=== PATIENT | male | born 1955 | race Caucasian/White ===

== ENCOUNTER 2017-06-29 12:54 | Emergency (ER) | payer OTHER, SELFPAY ==
[2017-06-29] VITALS (7 sets, daily range): BP systolic 134–164; BP diastolic 70–95; PULSE 63–87; RESP 14–15; TEMP 36.6; O2SAT 95–99; BMI 30.1
--- NOTE | 2017-06-29 13:00 | RAD_ITS ---
STUDY: X-RAY CHEST REASON FOR EXAM: Male, 61 years old. Chest discomfort. Irregular heartbeat. TECHNIQUE: Single AP portable view of the chest. COMPARISON: None. FINDINGS: EKG electrodes are seen. The lungs are clear and expanded. Scattered calcified granulomas. There is no demonstrated pleural abnormality. Normal size heart. Normal mediastinum and jennifer. Normal visualized pulmonary arteries. Normal visualized aortic arch and descending thoracic aorta. Normal visualized thoracic spine. Normal visualized ribs, clavicles, and shoulders. There is no demonstrated abnormality of the visualized soft tissue structures of the upper abdomen. RAD/Chest 1 View (Portable) IMPRESSION: Normal x-ray examination of the chest. Electronically Signed: Edson Plascencia MD at 13:35 EST Tel [phone], Service support ,
--- NOTE | 2017-06-29 13:00 | EKG12_ITS ---
Test Reason : CP Blood Pressure : / mmHG Vent. Rate : 082 BPM Atrial Rate : 082 BPM P-R Int : 188 ms QRS Dur : 124 ms QT Int : 392 ms P-R-T Axes : 044 006 023 degrees QTc Int : 457 ms Normal sinus rhythm Normal ECG Confirmed by EAMON SALAZAR, MONTY ([id number]), supervising editor trailer KIMBERLY VELAZQUEZ ([id number]) on 06/30/2017 2:24:40 PM Referred By: CANDY/REILLY Confirmed By:MONTY KNUTSON MD
[2017-06-29] MEDS: Aspirin 81 MG TAB.CHEW 324 MG PO (13:06)
[2017-06-29 13:10] LABS: Absolute Lymphocyte Count 2.19 X10^3/ul (0.83-4.51); Basophil# 0.04 X10^3/uL; Basophil% 0.6 % (0-1); Eosinophil# 0.03 X10^3/uL; Eosinophils% 0.4 % (0-5); Hematocrit 42.6 % (40-54); Hemoglobin 14.6 g/dl (13.0-16.5); Lymphocyte # 2.19 X10^3/ul (4.0); Lymphocyte % 32.7 % (19-41); Mean Corp Hgb Conc 34.3 g/gl (32-36); Mean Corpuscular Hgb 30.9 pg (27.0-32.0); Mean Corpuscular Volume 90.1 fL (80-94); Mean Platelet Vol. 9.2 fl (6.2-12.0); Monocyte# 0.45 X10^3/uL; Monocyte% 6.7 % (0-10); Neutrophil # 3.98 X10^3/uL (2.7-7.7); Neutrophil % 59.5 % (47-70); Platelet Count 233 K/mm3 (150-450); RBC Distribution Width CV 12.9 % (11.6-14.6); RBC Distribution Width SD 42.1 fl (35.1-43.9); Red Blood Count 4.73 M/mm3 (4.6-6.2); White Blood Count 6.7 K/mm3 (4.4-11.0)
[2017-06-29 13:11] LABS: POSITIVE COUNT NO; POSITIVE DIFFERENTIAL NO; POSITIVE MORPHOLOGY NO
[2017-06-29 13:23] LABS: Anion Gap 6 (5-15); BUN 14 mg/dL (7-18); BUN/Creat Ratio 12.5 RATIO (10-20); Calcium,Total 8.8 mg/dL (8.5-10.1); Chloride 107 mmol/L (98-107); Creatinine, Serum 1.12 mg/dL (0.70-1.30); EST Glomerular Filtration Rate 71 mL/min (>60); Est Glom Filt Rate - Afr Amer 86 mL/min (>60); Glucose 107 mg/dL (74-106); Potassium 4.1 mmol/L (3.5-5.1); Sodium Level 139 mmol/L (136-145)
--- NOTE | 2017-06-29 16:46 | ED.VISSUMM ---
- ER Visit Summary Date of Service: 06/29/17 Chief Complaint: Chest pain History of Present Illness: The patient is a 61 M presents with dullness left-sided chest since 6:15 AM, more than 6 hours prior to arrival. Symptoms wax and waning. States slight numbness to the volar forearm. Pain currently 1 out of 10. No worsening or relieving factors. No nausea or vomiting. No diaphoresis. No dyspnea. No recent illness. No PE risk factors. History of hypertension that is being monitored with no medications. Dad had an IL in his 50s. Stress test in 2000. Physical Examination: General: Alert and oriented ?3, no acute distress HEENT: Normocephalic, atraumatic. Moist mucosa membranes Neck: supple, nontender. Cardiovascular: Regular rate and rhythm, no murmurs Respiratory: Normal breath sounds, symmetric, no distress Abdomen: Soft, nontender, nondistended Extremities: Nontender, no edema, pulses intact ?4 Neuro: no focal neurological deficits. Test Results: EKG: Sinus rate of 82, no ST changes P-wave inversion in leads III. Chest x-ray negative. Cardiac workup negative, troponin less than 0.02?2. Emergency Department Course and Treatment: Patient in no acute distress. Given aspirin. Cardiac workup is negative. Heart scores a 2. JOSEPH score 0. Discussed with patient heart pathway guidelines. He did agree to stay with a 3 hour troponin draw which is obtained and negative. Remained symptom-free. Discussed with patient follow-up with his PCP or outpatient reevaluation and stress test. Discuss any worsening symptoms to return for reevaluation. All questions were answered. Treatment Plan: [] Disposition: Discharge Impression: 1. Acute chest pain This note was generated with [employer] dictation software. It may contain incorrect words, spelling, and punctuation that were not noted in review of the chart prior to signing ED Disposition - Plan for ED Patient: Disposition: Home or Assisted Living Chief Complaint: Chest Pain Diagnosis: Acute chest pain Instructions: ED Chest Pain [facility] Referrals: Eric Landaverde MD [Primary Care Provider] - 3-5 Days
--- NOTE | 2017-06-29 16:49 | ED.DCSUM_ITS ---
- ER Visit Summary Date of Service: 06/29/17 Chief Complaint: Chest pain History of Present Illness: The patient is a 61 M presents with dullness left- sided chest since 6:15 AM, more than 6 hours prior to arrival. Symptoms wax and waning. States slight numbness to the volar forearm. Pain currently 1 out of 10. No worsening or relieving factors. No nausea or vomiting. No diaphoresis. No dyspnea. No recent illness. No PE risk factors. History of hypertension that is being monitored with no medications. Dad had an RI in his 50s. Stress test in 2000. Physical Examination: General: Alert and oriented ?3, no acute distress HEENT: Normocephalic, atraumatic. Moist mucosa membranes Neck: supple, nontender. Cardiovascular: Regular rate and rhythm, no murmurs Respiratory: Normal breath sounds, symmetric, no distress Abdomen: Soft, nontender, nondistended Extremities: Nontender, no edema, pulses intact ?4 Neuro: no focal neurological deficits. Test Results: EKG: Sinus rate of 82, no ST changes P-wave inversion in leads III. Chest x-ray negative. Cardiac workup negative, troponin less than 0.02?2. Emergency Department Course and Treatment: Patient in no acute distress. Given aspirin. Cardiac workup is negative. Heart scores a 2. JOSEPH score 0. Discussed with patient heart pathway guidelines. He did agree to stay with a 3 hour troponin draw which is obtained and negative. Remained symptom-free. Discussed with patient follow-up with his PCP or outpatient reevaluation and stress test. Discuss any worsening symptoms to return for reevaluation. All questions were answered. Treatment Plan: [] Disposition: Discharge Impression: 1. Acute chest pain This note was generated with [employer] dictation software. It may contain incorrect words, spelling, and punctuation that were not noted in review of the chart prior to signing ED Disposition - Plan for ED Patient: Disposition: Home or Assisted Living Chief Complaint: Chest Pain Diagnosis: Acute chest pain Instructions: ED Chest Pain [facility] Referrals: Eric Landaverde MD [Primary Care Provider] - 3-5 Days
== END 2017-06-29 16:54 | disposition home or self-care (01) ==
PROVIDERS: Emergency Provider Emergency Medicine; Family Provider Family Medicine; PCP Family Medicine
DX: R07.89 Other chest pain (principal)
CPT/HCPCS: 71045; 80048; 84484; 85025; 93005; 99284; A4216

== ENCOUNTER → 2017-08-17 11:29 | Outpatient (CLI) | payer OTHER, SELFPAY ==
--- NOTE | 2017-08-17 14:45 | STRESSREP ---
Stress Test Report Exercise stress test. 61-year-old man with a history of chest pain. Stress protocol: Resting EKG demonstrates normal sinus rhythm with a rate of 77 bpm and a blood pressure 132/72 mmHg. The patient exercised according to the regular Jaden protocol for total duration of 8 minutes completing 2 minutes into stage III of the Jaden protocol. The maximum heart rate attained was 164 bpm which was 102% of maximum predicted heart rate the maximum workload attained was 10.1 metabolic equivalents. Patient maintained sinus rhythm throughout the recording. The resting blood pressure is 132/72 with a peak blood pressure of 200/70 mmHg and a rate pressure product of 28,400. The patient did develop some shortness of breath. At rest there were no ST or T-wave changes noted suggest ischemia. At peak exercise they appeared to be upsloping ST changes noted in leads II, III and aVF but is significantly elevated TP segment. The patient remained asymptomatic the above was concerning for ischemia. Conclusion: Exercise stress test with EKG changes concerning for possible ischemia. No angina noted. Good functional capacity.
--- NOTE | 2017-08-17 16:40 | RAD_ITS ---
STUDY: X-RAY CHEST REASON FOR EXAM: Male, 61 years old. Abnormal result of cardiovascular study TECHNIQUE: Frontal and lateral views of the chest. COMPARISON: None. FINDINGS: The lungs are clear and expanded. There is no demonstrated pleural abnormality. Normal size heart. Normal mediastinum and jennifer. Normal visualized pulmonary arteries. Normal visualized aortic arch and descending thoracic aorta. Normal visualized thoracic spine. Normal visualized ribs, clavicles, and shoulders. There is no demonstrated abnormality of the visualized soft tissue structures of the upper abdomen. RAD/Chest PA and Lateral IMPRESSION: Normal x-ray examination of the chest. Electronically Signed: Albert Julio MD at 17:34 EDT , Service support ,
== END ==
PROVIDERS: Family Provider Family Medicine; PCP Family Medicine; Visit Provider Family Medicine
DX: R07.9 Chest pain, unspecified (principal); R94.39 Abnormal result of other cardiovascular function study
CPT/HCPCS: 71046; 93017

== ENCOUNTER → 2017-08-18 06:37 | Day surgery (SDC) | payer OTHER, SELFPAY ==
[2017-08-17 17:19] LABS: Absolute Neutrophil Count 6.9 X10^3/uL (2.0-7.7); Basophil# 0.03 X10^3/uL; Basophil% 0.3 % (0-1); Eosinophil# 0.07 X10^3/uL; Eosinophils% 0.7 % (0-5); Hematocrit 41.9 % (40-54); Hemoglobin 14.1 g/dl (13.0-16.5); Lymphocyte % 21.7 % (19-41); Mean Corp Hgb Conc 33.7 g/gl (32-36); Mean Corpuscular Hgb 30.9 pg (27.0-32.0); Mean Corpuscular Volume 91.9 fL (80-94); Mean Platelet Vol. 9.4 fl (6.2-12.0); Monocyte% 8.9 % (0-10); Neutrophil # 6.94 X10^3/uL (2.7-7.7); Neutrophil % 68.3 % (47-70); Platelet Count 264 K/mm3 (150-450); RBC Distribution Width CV 12.8 % (11.6-14.6); RBC Distribution Width SD 42.5 fl (35.1-43.9); Red Blood Count 4.56 M/mm3 (4.6-6.2); White Blood Count 10.2 K/mm3 (4.4-11.0)
[2017-08-17 17:22] LABS: POSITIVE COUNT NO; POSITIVE DIFFERENTIAL NO; POSITIVE MORPHOLOGY NO
[2017-08-17 17:29] LABS: Prothrombin Time (Protime)PT. 13.4 SECONDS (11.7-14.9)
[2017-08-17 17:40] LABS: Anion Gap 6 (5-15); BUN 19 mg/dL (7-18); BUN/Creat Ratio 16.7 RATIO (10-20); Chloride 105 mmol/L (98-107); Creatinine, Serum 1.14 mg/dL (0.70-1.30); EST Glomerular Filtration Rate 69 mL/min (>60); Est Glom Filt Rate - Afr Amer 84 mL/min (>60); Glucose 94 mg/dL (74-106); Potassium 4.4 mmol/L (3.5-5.1); Sodium Level 137 mmol/L (136-145)
[2017-08-18 06:41] VITALS: BMI 29.2
--- NOTE | 2017-08-18 08:33 | CL.D_ITS ---
Patient Name: MUKUND ULRICH Study Date: 08/18/2017 Performing: Colin Hardwick MD Ht: 71 inches 180.34 cm : 1955 Wt: 211 lbs 95.708 kg Age: 61 Gender: male BSA: 2.16 PROCEDURE(S) PERFORMED IF51-[id number]/COR/LV CLINICAL PROFILE AND INDICATIONS Indications: Suspected CAD Heart Failure: None Stress/Imaging Standard Exercise Stress Test: Yes Result: Indeterminant Angina Classification Anginal Classification w/in 2 Weeks: No symptoms CAD Presentations: Symptom unlikely to be ischemic. CONCLUSIONS Normal coronary arteries Normal LV size, wall motion,and systolic function RECOMMENDATIONS Medical therapy DESCRIPTION OF PROCEDURE The patient arrived to the procedure lab. The risks and benefits of the procedure as well as a full d escription of our services here and current unavailability of surgical backup were fully explained to the patient and/or their significant other prior to the catheterization. The Timeout was completed, verifying the correct patient and procedure. The patient's procedural site was prepped and draped in the usual fashion. . Using a modified Seldinger technique, arterial access was obtained via the right radial artery, a 5Fr sheath was inserted. Left Coronary Artery selective angiography was performed in multiple views using a 5 Fr. 4.0 [place] catheter. Right Coronary Artery selective angiography was t hen performed in multiple views using a 5 Fr. 4.0 [place] catheter. Left Ventriculography was performed in MANCILLA projection using a 5 Fr. Pigtail catheter. LV to AO pullback pressures were then recorded.The arterial sheath was pulled and a TR Band was applied for hemostasis CORONARY ANGIOGRAPHY DOMINANCE: Right Dominant LEFT HEART ASSESSMENT Left Ventricular Ejection Fraction: by LV Gram 60 % Normal LV wall motion Normal Left Ventricular systolic function Normal Left Ventricular systolic function LEFT MAIN: Angiographically normal LEFT ANTERIOR DECENDING ARTERY: Angiographically normal CIRCUMFLEX ARTERY: Angiographically normal RIGHT CORONARY ARTERY: Angiographically normal COMPLICATIONS No Complications PROCEDURE MEDICATIONS Fentanyl 50 mcg IV Versed 1 mg IV Versed 1 mg IV Oxygen: 2 L/min via nasal cannula Heparin diluted in 23cc Heparinized saline. Patient given 10cc IA of this solution. 08/18/2017 08:09: 41 Verapamil 2.5mg, Ntg 100mcgs, 2000 units of Heparin diluted in 23cc Heparinized saline. Patient give n 10cc IA of this solution. 08/18/2017 08:09:41 SUMMARY OF HEMODYNAMIC DATA Time AIR REST ECG 07:03:54 AO 99/67 (82) SA 08:13:11 LV 110/5, 10 08:19:42 LV 114/4, 10 08:19:49 LV 111/5, 14 08:21:22 LVp 107/9, 12 08:21:26 AOp 114/70 (89) 08:21:31 Signed By Colin Hardwick MD On 08/18/2017 08:32:22 Colin Hardwick MD
== END ==
PROVIDERS: Family Provider Family Medicine; PCP Family Medicine; Visit Provider Internal Medicine Cardiovascular Disease
DX: R07.9 Chest pain, unspecified (principal); R94.39 Abnormal result of other cardiovascular function study; I10 Essential (primary) hypertension; F10.20 Alcohol dependence, uncomplicated; Z87.891 Personal history of nicotine dependence; Z79.82 Long term (current) use of aspirin; Z79.899 Other long term (current) drug therapy
CPT/HCPCS: 36415; 80048; 85025; 85610; 93458; 99152; 99153; J7030; Q9967; C1769; C1894

== ENCOUNTER → 2018-03-22 16:11 | Outpatient (CLI) | payer OTHER, SELFPAY ==
[2017-08-18 06:41] VITALS: BMI 29.2
--- NOTE | 2018-03-22 16:13 | RAD_ITS ---
STUDY: X-RAY - ABDOMEN/PELVIS REASON FOR EXAM: Male, 62 years old. Abdominal pain below belly button. TECHNIQUE: AP supine and upright views of the abdomen and pelvis. 4 images COMPARISON: None. FINDINGS: Normal visualized lung bases. There is an unremarkable bowel gas pattern. There is no demonstrated free abdominal air. The visualized liver, spleen and kidneys are grossly normal in size and morphology. Normal soft tissue structures. Normal visualized osseous structures. RAD/Abd Inc Decub and/or Erect IMPRESSION: Normal x-ray examination of the abdomen and pelvis. Electronically Signed: Sofi Lim MD at 2:55 EST , Service support ,
--- OUTSIDE RECORDS SUMMARY | 2018-05-04 14:44 | XMS RPT_ITS ---
:1955 Author Organization OHIP Support Name Relationship Address Phone KRIS ULRICH Unavailable [address] + [place] [address] [employer] [employer] Unavailable [address] + [place] [address] SERG, KRIS Unavailable [address] + [place] [address] [employer] Unavailable [address] + [place] [address] SERG, KRIS Unavailable [address] + [place] [address] [employer] Unavailable [address] + [place] [address] SERG, KRIS Unavailable [address] + [place] [address] [employer] [employer] Unavailable [address] + [place] [address] SERG, KRIS Unavailable [address] + [place] [address] [employer] [employer] Unavailable [address] + [place] [address] SERG, KRIS Unavailable [address] + [place] [address] [employer] [employer] Unavailable [address] + [place] [address] SERG, KRIS Unavailable [address] + [place] [address] [employer] [employer] Unavailable [address] + [place] [address] SERG, KRIS Unavailable [address] + [place] [address] [employer] [employer] Unavailable [address] + [place] [address] KRIS ULRICH Unavailable [address] + [place] [address] [employer] Unavailable [address] + [place] [address] Care Team Providers Name Role Phone Jovan Pope Attending Unavailable Ranney, Christopher Primary Care Unavailable Ranney, Christopher Attending Unavailable Ranney, Christopher Primary Care Unavailable DeFinis, Harumi Attending Unavailable DeFinis, Harumi Attending Unavailable DeFinis, Harumi Attending Unavailable Mulu, [place] Attending Unavailable Ranney, Christopher Referring Unavailable Ranney, Christopher Primary Care Unavailable Mulu, Colin Attending Unavailable Mulu, [place] Referring Unavailable Ranney, Christopher Primary Care Unavailable Mulu, Colin Attending Unavailable Ranney, Christopher Attending Unavailable Ranney, Christopher Referring Unavailable Ranney, Christopher Primary Care Unavailable PROBLEMS PROBLEMS DATE TYPE CONDITION / CODE ATTENDING STATUS SOURCE 03/22/2018 Unknown R10.30 - [place], Active [place] abdominal pain, [facility] unspecified / Hospital R10.30(ICD-10) Repository 09/08/2017 Unknown R94.39 - Abnormal Mulu, [place] Active [facility] result of other [facility] cardiovascular Hospital function study / Repository R94.39(ICD-10) 09/08/2017 Unknown R07.9 - Chest pain, Mulu, [place] Active [facility] unspecified / Community R07.9(ICD-10) Hospital Repository PROCEDURES PROCEDURES No Procedure Records FoundRESULTS RESULTS ABD INC DECUB Observed: 03/22/2018 Status: F Source: [place] AND/OR ERECT 4:14 PM [facility] REPOSITORY [facility] Imaging Services [address] [place] [address] Abd Inc Decub and/or Erect MR#: [id number] Acct: [id number] Name: MUKUND ULRICH Rep #: [id number] : 1955 M 62 From: Sofi Lim MD PCP: Robles Landaverde MD Status: REG CLI Study: Abd Inc Decub and/or Erect Date of Exam: 03/22/18 Exam# [id number] Ordering Dr: Eric Landaverde MD STUDY: X-RAY - ABDOMEN/PELVIS REASON FOR EXAM: Male, 62 years old. Abdominal pain below belly button. TECHNIQUE: AP supine and upright views of the abdomen and pelvis. 4 images COMPARISON: None. FINDINGS: Normal visualized lung bases. There is an unremarkable bowel gas pattern. There is no demonstrated free abdominal air. The visualized liver, spleen and kidneys are grossly normal in size and morphology. Normal soft tissue structures. Normal visualized osseous structures. RAD/Abd Inc Decub and/or Erect IMPRESSION: Normal x-ray examination of the abdomen and pelvis. Electronically Signed: Sofi Lim MD at 2:55 EST , Service support , CC: Robles Landaverde MD Exchange Underwriting Consultant: Signed CARDIOLOGY VISIT Observed: 08/18/2017 Status: F Source: [place] REPORT 9:25 AM [facility] REPOSITORY [facility] [address] [place] [address]. [address] [place] [address] OFFICE VISIT Date of Service: 08/17/17 MR#: [id number] Acct: [id number] Name: MUKUND ULRICH Rep #: [id number] : 1955 Provider: Colin Knutson MD Age/Sex: 61/M Location: [facility] Status: Signed HPI HPI Chief Complaint: Initial evaluation. Details: MUKUND ULRICH, is a 61 M who presents to the office today for initial evaluation for chest pain. He is a pleasant gentleman with a history of hypertension who says that a few weeks ago he started experiencing left-sided chest discomfort he went to the emergency room after he noted that his blood pressure was noted to be elevated. He was put on lisinopril and subsequently discharged. He has also noticed some chest discomfort when he has been walking his to 80 pound dogs. He has had no dizziness or diaphoresis no near syncope or syncope he has been compliant with his medications. He was scheduled for a stress test and underwent an exercise stress test without nuclear imaging today it has demonstrated abnormal changes in his inferior ST and T piece segments and therefore he was advised to see us for further evaluation. He denies any neck arm or jaw discomfort in his physical exam today demonstrates clear lung hudson regular rate and rhythm and no pedal edema. Intake Vital Signs08/17/17 Height 5 ft 11 in 08/17/17 Weight: 210 lb 08/17/17 Body Mass Index (BMI) 29.2 08/17/17 Blood Pressure 120/82 08/17/17 Blood Pressure Location Lt brachial Intake Visit Reasons: Abnormal stress Call Center Rn Required: No Accompanied by: None Is patient in pain?: Yes (lower abdominal discomfort radiates to lower back, cramp) Pain scale (1-10): 2 Allergies No Known Allergies Allergy (Verified 08/17/17 15:44) Medications aspirin 81 mg tablet,delayed release 81 mg PO QDAY #7 tab 08/17/17 [Rx Confirmed 08/18/17] clopidogrel 75 mg tablet 75 mg PO QDAY #7 tab 08/17/17 [Rx Confirmed 08/18/17] lisinopril 20 mg tablet 20 mg PO QDAY 08/17/17 [History Confirmed 08/18/17] PFSH Medical History Tinnitus of both ears (Chronic) Alcohol dependence, continuous drinking behavior (Chronic) Abnormal stress test (Acute) Chest pain (Acute) HTN (hypertension) (Acute) Surgical History History of colonoscopy with polypectomy (Chronic 01/08/17) Family History Father Cancer Lung cancer FH: CABG (coronary artery bypass surgery) Myocardial infarction Mother Colon cancer Grandfather Colon cancer Social History Smoking Status: Former smoker how long ago did patient quit smokin alcohol intake: current alcohol intake frequency: a few times a week Alcohol type: beer substance use type: does not use caffeine: Yes Type: coffee what type of physical activity do you participate in: none seatbelt use: always do you feel safe at home: Yes ROS Const Const: Positive for fatigue and weakness; negative for body ache, fever(s), chills, night sweats, daytime sleepiness, difficulty sleeping, weight gain, weight loss, increased appetite, poor appetite, anorexia, other, frequent falls, headache(s) or excessive sweating Eyes Eyes: Negative for blind spots, loss of peripheral vision, transient loss of vision, change in vision, floaters, tunnel vision, other, blurry vision or double vision ENT ENT: Positive for tinnitus; negative for hearing loss, Nosebleed/epistaxis, post nasal drip, bleeding gums, hoarseness, neck pain, dry mouth, other, balance problems, dizziness, headache(s), tongue swelling or lip swelling Cardio Chest Pain: No Palpitations: No Edema: None Muscle aches with walking: None Resp Respiratory: Negative for SOB with activity, SOB at rest, SOB orthopnea\SOB lying down, Cough, Coughing up blood/hemoptysis, chest congestion, pain on inspiration, snoring, stridor, wheezing, crackles, paroxysmal nocturnal dyspnea or other GI GI: Negative nausea, vomiting, heartburn, constipation, belching, bloating, cramping, vomiting blood/hematemesis, bright, red blood in stools, black,tarry stools, loose stools, Difficulty Swallowing or other : Negative for hematuria, frequent nighttime urination/ nocturia, erectile dysfunction or abnormal vaginal bleeding Musc Musc: Negative for muscle aches/ myalgia, muscle weakness, joint pain or balance problems Skin Skin: Negative redness, non-healing lesions, unusual bruising, skin ulcer, wounds, jaundice, other or rash Neuro Neuro: Positive for weakness; negative for dizziness, lightheadedness, near syncope, syncope, orthostatic symptoms, frequent falls, headache(s), confusion, memory loss, restless legs, blurry vision, double vision, vertigo, seizures, lack of coordination or other Vlad Hematologic/Lymphatic: Negative for easy bleeding, easy bruising, enlarged lymph nodes or other Endo Endo: Positive for fatigue and flushing (facial); negative for cold intolerance, heat intolerance, excessive sweating, increased thirst/drinking, increased hunger, hair loss, hair growth or other Psych Psych: Negative for anxiety, depression, thoughts of harming anyone, thoughts of harming yourself, visual hallucinations, panic attacks or audible hallucinations Allergy Allergy/Immunology: Negative for throat swelling, Negative for tongue swelling, Negative for hives, Negative for rash, Negative for lip swelling Cardiology Exam Const Appearance: cooperative, healthy appearing, well developed, well groomed and no acute distress Nutritional Appearance: well nourished and average body habitus Orientation: alert, awake and oriented x3 Head Head: normal to inspection, normocephalic and atraumatic Ears: hearing grossly normal bilaterally and external ears normal Nose: external nose normal, nasal mucous membranes and turbinates normal, nares normal, septum normal, no nasal discharge Face and Sinus: face symmetric Mouth: oral mucosae normal, tongue normal, oropharynx normal and moist mucous membranes Teeth and gingiva: dentition normal Throat: posterior oropharynx normal, tonsils normal and uvula midline Eyes General: appearance normal, both eyes and all related structures Eyelids: eyelids normal Conjunctivae: conjunctivae normal Pupils: PERRL, normal by confrontation and accommodation normal EOM: EOM intact bilaterally Neck Neck: normal visual inspection, trachea midline and no JVD JVD: +5 Carotids: normal carotid upstroke and bounding pulses Chest Chest inspection: normal inspection of the chest, symmetric chest movement and normal respiratory effort Auscultation: Bilateral: Clear to Auscultation Cardio Palpation: normal PMI Rate: regular rate Rhythm: regular rhythm Heart sounds: S1 normal, S2 normal and normal, physiologic split S2; negative rub, gallop or murmur GI GI: normal to inspection, soft, no hepatosplenomegaly and bowel sounds present Neuro General: alert, awake, oriented x3, no focal sensory deficit, gait normal and moves all extremities Skin Skin: no rashes or lesions noted Extremities Pulses: Normal: Right Femoral Pulse, Left Femoral Pulse, Right Dorsalis Pedis Pulse, Left Dorsalis Pedis Pulse, Right Posterior Tibial Pulse, Left Posterior Tibial Pulse, Right Radial Pulse, Left Radial Pulse Lower Extremity Edema: None: Bilateral Musculoskel Musculoskeletal: No joint tenderness Psych Psychological: normal affect Assessment AND Plan 1. Abnormal stress test R94.39 Plan He does have a history of chest pain with an abnormal stress test with EKG changes which appeared to ST elevation. Due to the above it was felt that he should be seen and undergo preparation for a cardiac catheterization. The risks benefits and alternatives have been explained to him and he understands and agrees to proceed. Depending on the findings further recommendations will be made. Orders Orders: 2. Essential hypertension I10 Plan He does have a history of hypertension and has been placed on lisinopril. He will continue the same. His blood pressure appears to be well controlled at this time. Thank you for allowing me to participate in the care of your patient. 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) Coding Level of Care Code Off vis,new,level 4 Diagnoses Abnormal stress test R94.39 Essential hypertension I10 Hypertension type: essential hypertension Coding Level of Care Code Off vis,new,level 4 Diagnoses Abnormal stress test R94.39 Essential hypertension I10 Hypertension type: essential hypertension 08/18/17 0925 <Electronically signed by Colin Knutson MD> Date Colin Knutson MD Cosign Signature: Date (if applicable) CC: Robles Landaverde MD CHEST PA AND LATERAL Observed: 08/17/2017 Status: F Source: [place] 4:35 PM [facility] REPOSITORY [facility] Imaging Services [address] [place] [address] Chest PA and Lateral MR#: [id number] Acct: [id number] Name: MUKUND ULRICH Rep #: [id number] : 1955 M 61 From: Albert Julio MD PCP: Robles Landaverde MD Status: REG CLI Study: Chest PA and Lateral Date of Exam: 08/17/17 Exam# [id number] Ordering Dr: Colin Knutson MD STUDY: X-RAY CHEST REASON FOR EXAM: Male, 61 years old. Abnormal result of cardiovascular study TECHNIQUE: Frontal and lateral views of the chest. COMPARISON: None. FINDINGS: The lungs are clear and expanded. There is no demonstrated pleural abnormality. Normal size heart. Normal mediastinum and jennifer. Normal visualized pulmonary arteries. Normal visualized aortic arch and descending thoracic aorta. Normal visualized thoracic spine. Normal visualized ribs, clavicles, and shoulders. There is no demonstrated abnormality of the visualized soft tissue structures of the upper abdomen. RAD/Chest PA and Lateral IMPRESSION: Normal x-ray examination of the chest. Electronically Signed: Albert Julio MD at 17:34 EDT , Service support , CC: Robles Landaverde MD; Colin Knutson MD Exchange Underwriting Consultant: Signed CBC W/DIFF, AUTOMATED Collected: 08/17/2017 Status: F Source: [place] 4:29 PM [facility] REPOSITORY TYPE CODE TESTS RESULT OUT OF RANGE REFERENCE UNITS LAB L100.1000 4.4-11.0 K/mm3 Normal WBC 10.2 LAB L100.1200 4.6-6.2 M/mm3 Low RBC 4.56 LAB L100.1300 13.0-16.5 g/dl Normal HGB 14.1 LAB L100.1400 40-54 % Normal HCT 41.9 LAB L100.1500 80-94 fL Normal MCV 91.9 LAB L100.1600 27.0-32.0 pg Normal MCH 30.9 LAB L100.1700 32-36 g/gl Normal MCHC 33.7 LAB L100.1810 11.6-14.6 % Normal RDW CV 12.8 LAB L100.1820 35.1-43.9 fl Normal RDW SD 42.5 LAB L100.1900 150-450 K/mm3 Normal PLT 264 LAB L100.2000 6.2-12.0 fl Normal MPV 9.4 LAB L100.2100 47-70 % Normal NEUT% 68.3 LAB L100.2200 19-41 % Normal LY% 21.7 LAB L100.2300 0-10 % Normal MONO% 8.9 LAB L100.2400 0-5 % Normal EO% 0.7 LAB L100.2500 0-1 % Normal BASO% 0.3 LAB L100.2550 0.0-0.9 % Normal IM GRAN % 0.100 Result Comment: IG% - Immature Granulocytes (promyelocytes, myelocytes and metamyelocytes) > 1% indicates that a LEFT SHIFT is Present. LAB L100.2620 2.0-7.7 X10 3/uL Normal Absolute Neut 6.9 LAB L100.2720 0.83-4.51 X10 3/ul Normal Absolute Lymph 2.20 Performed By: #### L100.0100, L300.3900, L500.2500 #### [facility] [address] [place], [place], [address] PROTHROMBIN TIME W/INR Collected: 08/17/2017 Status: F Source: [place] 4:29 PM [facility] REPOSITORY TYPE CODE TESTS RESULT OUT OF RANGE REFERENCE UNITS LAB L300.4150 11.7-14.9 SECONDS Normal PROTIME 13.4 LAB L300.4200 Normal INR 1.0 Performed By: #### L100.0100, L300.3900, L500.2500 #### [facility] [address] [place], [place], [address] BASIC METABOLIC Collected: 08/17/2017 Status: F Source: [place] PROFILE (BMP) 4:29 PM [facility] REPOSITORY TYPE CODE TESTS RESULT OUT OF RANGE REFERENCE UNITS LAB L501.0100 74-106 mg/dL Normal GLU 94 Result Comment: Please note revised GLUCOSE reference range effective 2017. LAB L501.1000 7-18 mg/dL High BUN 19 LAB L501.1100 0.70-1.30 mg/dL Normal CREAT,SERUM 1.14 Result Comment: The validity of the calculated GFR AND GFRAA in patients over 70 years has not been determined. Clinical correlation is essential. LAB L501.1110 >60 mL/min Normal EST GFR 69 Result Comment: Non- GFR Calc LAB L501.1115 >60 mL/min Normal EST GFR - AA 84 Result Comment: GFR Calc LAB L501.1300 10-20 RATIO Normal BUN/CRE 16.7 LAB L501.2200 8.5-10.1 mg/dL CA Normal 9.0 LAB L501.5300 136-145 mmol/L NA Normal 137 LAB L501.5600 3.5-5.1 mmol/L K Normal 4.4 LAB L501.5900 98-107 mmol/L CL Normal 105 LAB L501.6100 21.0-32.0 mmol/L Normal CO2 26.0 LAB L501.6200 5-15 Normal GAP 6 Performed By: #### L100.0100, L300.3900, L500.2500 #### [facility] [address] [place], [address] STRESS REPORT Observed: 08/17/2017 Status: F Source: [place] 2:49 PM [facility] REPOSITORY [facility] Cardiovascular Services [address] [place] [address] MR#: [id number] Acct: [id number] Name: MUKUND ULRICH Rep #: [id number] : 1955 61 From: Colin Knutson MD Primary Care: Robles Landaverde MD Status: REG CLI Ordering Dr: Sex: M C Stress Test Report Exercise stress test. 61-year-old man with a history of chest pain. Stress protocol: Resting EKG demonstrates normal sinus rhythm with a rate of 77 bpm and a blood pressure 132/72 mmHg. The patient exercised according to the regular Jaden protocol for total duration of 8 minutes completing 2 minutes into stage III of the Jaden protocol. The maximum heart rate attained was 164 bpm which was 102% of maximum predicted heart rate the maximum workload attained was 10.1 metabolic equivalents. Patient maintained sinus rhythm throughout the recording. The resting blood pressure is 132/72 with a peak blood pressure of 200/70 mmHg and a rate pressure product of 28,400. The patient did develop some shortness of breath. At rest there were no ST or T-wave changes noted suggest ischemia. At peak exercise they appeared to be upsloping ST changes noted in leads II, III and aVF but is significantly elevated TP segment. The patient remained asymptomatic the above was concerning for ischemia. Conclusion: Exercise stress test with EKG changes concerning for possible ischemia. No angina noted. Good functional capacity. 08/17/17 7178 <Electronically signed by Colin Knutson MD> Date Colin Knutson MD CC: Robles Landaverde MD Date Dictated: 08/17/17 144 Date Transcribed: 08/17/171444 Exchange Underwriting Consultant: [place] Signed 12 LEAD ELECTROCARDIOGRAM Observed: 06/30/2017 Status: F Source: [place] 2:25 PM [facility] REPOSITORY [facility] Cardiovascular Services [address] [place] [address] 12 Lead EKG 06/29/17 1253 MR#: [id number] Acct: [id number] Name: MUKUND ULRICH Rep #: [id number] : 1955 61 From: Colin Knutson MD Attending Dr: Status: DEP ER Ordering Dr: Jovan Pope DO Date: 06/29/17 Location: ED Sex: M C Admitted: Test Reason : CP Blood Pressure : / mmHG Vent. Rate : 082 BPM Atrial Rate : 082 BPM P-R Int : 188 ms QRS Dur : 124 ms QT Int : 392 ms P-R-T Axes : 044 006 023 degrees QTc Int : 457 ms Normal sinus rhythm Normal ECG Confirmed by COLIN KNUTSON MD ([id number]), photo editor KIMBERLY VELAZQUEZ ([id number]) on 06/30/2017 2:24:40 PM Referred By: CANDY/REILLY Confirmed By:COLIN KNUTSON MD 06/30/17 1424 Date Colin Knutson MD CC: Robles Landaverde MD; Jovan Pope Signed EMERGENCY DEPARTMENT Observed: 06/29/2017 Status: F Source: [place] SUMMARY 4:49 PM [facility] REPOSITORY [facility] Medical Records Department [address] [place] [address] Emergency Department Summary 06/29/17 1646 MR#: [id number] Acct: [id number] Name: MUKUND ULRICH Rep #: [id number] : 1955 61 From: Jovan Nichole PCP: Robles Landaverde MD Status: REG ER - ER Visit Summary Date of Service: 06/29/17 Chief Complaint: Chest pain History of Present Illness: The patient is a 61 M presents with dullness left-sided chest since 6:15 AM, more than 6 hours prior to arrival. Symptoms wax and waning. States slight numbness to the volar forearm. Pain currently 1 out of 10. No worsening or relieving factors. No nausea or vomiting. No diaphoresis. No dyspnea. No recent illness. No PE risk factors. History of hypertension that is being monitored with no medications. Dad had an [place] in his 50s. Stress test in 2000. Physical Examination: General: Alert and oriented 3, no acute distress HEENT: Normocephalic, atraumatic. Moist mucosa membranes Neck: supple, nontender. Cardiovascular: Regular rate and rhythm, no murmurs Respiratory: Normal breath sounds, symmetric, no distress Abdomen: Soft, nontender, nondistended Extremities: Nontender, no edema, pulses intact 4 Neuro: no focal neurological deficits. Test Results: EKG: Sinus rate of 82, no ST changes P-wave inversion in leads III. Chest x-ray negative. Cardiac workup negative, troponin less than 0.02 2. Emergency Department Course and Treatment: Patient in no acute distress. Given aspirin. Cardiac workup is negative. Heart scores a 2. JOSEPH score 0. Discussed with patient heart pathway guidelines. He did agree to stay with a 3 hour troponin draw which is obtained and negative. Remained symptom-free. Discussed with patient follow-up with his PCP or outpatient reevaluation and stress test. Discuss any worsening symptoms to return for reevaluation. All questions were answered. Treatment Plan: [] Disposition: Discharge Impression: 1. Acute chest pain This note was generated with [employer] dictation software. It may contain incorrect words, spelling, and punctuation that were not noted in review of the chart prior to signing ED Disposition - Plan for ED Patient: Disposition: Home or Assisted Living Chief Complaint: Chest Pain Diagnosis: Acute chest pain Instructions: ED Chest Pain [facility] Referrals: Eric Landaverde MD [Primary Care Provider] - 3-5 Days What to do if you have Problems For any increased pain, shortness of breath, bleeding, nausea or vomiting, chest pain, or any unexpected problems, contact your Primary Care Provider. Call [facility] ([phone]) or report to the closest Emergency Room. Call 911 if necessary. 06/29/17 2204 <Electronically signed by Jovan Nichole> Date Jovan Nichole Cosigner Signature (If Indicated): Date CC: Robles Landaverde MD TROPONIN-I Collected: 06/29/2017 Status: F Source: [place] 4:05 PM [facility] REPOSITORY Order Comment: 'TROP' Serial specimen #1, #2, #3, or #4: 2 TYPE CODE TESTS RESULT OUT OF RANGE REFERENCE UNITS LAB L501.4010 <0.06 ng/mL Normal < 0.02 TROPONIN-I Result Comment: TROPONIN-I EXPECTED VALUES <0.05 NEGATIVE 0.06 - 0.59 AT RISK OF IL > OR = 0.60 SUGGEST IL Performed By: #### L501.4010 #### [facility] [address] [place], [address] CBC W/DIFF, AUTOMATED Collected: 06/29/2017 Status: F Source: [place] 1:05 PM [facility] REPOSITORY TYPE CODE TESTS RESULT OUT OF RANGE REFERENCE UNITS LAB L100.1000 4.4-11.0 K/mm3 Normal WBC 6.7 LAB L100.1200 4.6-6.2 M/mm3 Normal RBC 4.73 LAB L100.1300 13.0-16.5 g/dl Normal HGB 14.6 LAB L100.1400 40-54 % Normal HCT 42.6 LAB L100.1500 80-94 fL Normal MCV 90.1 LAB L100.1600 27.0-32.0 pg Normal MCH 30.9 LAB L100.1700 32-36 g/gl Normal MCHC 34.3 LAB L100.1810 11.6-14.6 % Normal RDW CV 12.9 LAB L100.1820 35.1-43.9 fl Normal RDW SD 42.1 LAB L100.1900 150-450 K/mm3 Normal PLT 233 LAB L100.2000 6.2-12.0 fl Normal MPV 9.2 LAB L100.2100 47-70 % Normal NEUT% 59.5 LAB L100.2200 19-41 % Normal LY% 32.7 LAB L100.2300 0-10 % Normal MONO% 6.7 LAB L100.2400 0-5 % Normal EO% 0.4 LAB L100.2500 0-1 % Normal BASO% 0.6 LAB L100.2550 0.0-0.9 % Normal IM GRAN % 0.100 Result Comment: IG% - Immature Granulocytes (promyelocytes, myelocytes and metamyelocytes) > 1% indicates that a LEFT SHIFT is Present. LAB L100.2620 2.0-7.7 X10 3/uL Normal Absolute Neut 4.0 LAB L100.2720 0.83-4.51 X10 3/ul Normal Absolute Lymph 2.19 Performed By: #### L100.0100 #### [facility] [address] [place], [place], [address] BASIC METABOLIC Collected: 06/29/2017 Status: F Source: [place] PROFILE (BMP) 1:05 PM [facility] REPOSITORY Order Comment: 'TROP' Serial specimen #1, #2, #3, or #4: 1 TYPE CODE TESTS RESULT OUT OF RANGE REFERENCE UNITS LAB L501.0100 74-106 mg/dL High GLU 107 Result Comment: Fasting Glucose result from 100 to 125 mg/dL suggests IMPAIRED HOMEOSTASIS per A.D.A. criteria. Please note revised GLUCOSE reference range effective 2017. LAB L501.1000 7-18 mg/dL Normal BUN 14 LAB L501.1100 0.70-1.30 mg/dL Normal CREAT,SERUM 1.12 Result Comment: The validity of the calculated GFR AND GFRAA in patients over 70 years has not been determined. Clinical correlation is essential. LAB L501.1110 >60 mL/min Normal EST GFR 71 Result Comment: Non- GFR Calc LAB L501.1115 >60 mL/min Normal EST GFR - AA 86 Result Comment: GFR Calc LAB L501.1255 ml/min Normal Estimated CRCL 74.70 LAB L501.1300 10-20 RATIO Normal BUN/CRE 12.5 LAB L501.2200 8.5-10 mg/dL Normal .1 CA 8.8 LAB L501.5300 136-14 mmol/L Normal 5 NA 139 LAB L501.5600 3.5-5. mmol/L Normal 1 K 4.1 LAB L501.5900 98-107 mmol/L Normal CL 107 LAB L501.6100 21.0-3 mmol/L Normal 2.0 CO2 26.0 LAB L501.6200 5-15 Normal GAP 6 Performed By: #### L500.2500, L501.4010 #### [facility] [address] [place], [address] TROPONIN-I Collected: 06/29/2017 Status: F Source: [place] 1:05 PM [facility] REPOSITORY Order Comment: 'TROP' Serial specimen #1, #2, #3, or #4: 1 TYPE CODE TESTS RESULT OUT OF RANGE REFERENCE UNITS LAB L501.4010 <0.06 ng/mL Normal < 0.02 TROPONIN-I Result Comment: TROPONIN-I EXPECTED VALUES <0.05 NEGATIVE 0.06 - 0.59 AT RISK OF [place] > OR = 0.60 SUGGEST [place] Performed By: #### L500.2500, L501.4010 #### [facility] [address] [place], [address] CHEST 1 VIEW Observed: 06/29/2017 Status: F Source: [place] (PORTABLE) 1:01 PM [facility] REPOSITORY [facility] Imaging Services [address] [place] [address] Chest 1 View (Portable) MR#: [id number] Acct: [id number] Name: MUKUND ULRICH Rep #: [id number] : 1955 M 61 From: Edson Plascencia MD PCP: Robles Landaverde MD Status: REG ER Study: Chest 1 View (Portable) Date of Exam: 06/29/17 Exam# [id number] Ordering Dr: Jovan Pope DO STUDY: X-RAY CHEST REASON FOR EXAM: Male, 61 years old. Chest discomfort. Irregular heartbeat. TECHNIQUE: Single AP portable view of the chest. COMPARISON: None. FINDINGS: EKG electrodes are seen. The lungs are clear and expanded. Scattered calcified granulomas. There is no demonstrated pleural abnormality. Normal size heart. Normal mediastinum and jennifer. Normal visualized pulmonary arteries. Normal visualized aortic arch and descending thoracic aorta. Normal visualized thoracic spine. Normal visualized ribs, clavicles, and shoulders. There is no demonstrated abnormality of the visualized soft tissue structures of the upper abdomen. RAD/Chest 1 View (Portable) IMPRESSION: Normal x-ray examination of the chest. Electronically Signed: Edson Plascencia MD at 13:35 EST Tel [phone], Service support , CC: Robles Landaverde MD; Jovan Pope Exchange Underwriting Consultant: Signed ALLERGIES ALLERGIES DATE TYPE / CODE NAME / CODE REACTION SEVERITY SOURCE 08/17/[address] [facility] Allergy/4160 Allergies/F00 Hospital 29910(SNOMED 0601110(RXNOR Repository CT) M) ENCOUNTERS ENCOUNTERS ADMIT/DISCHARGE ACCOUNT ADMITTING ENCOUNTER LOCATION SOURCE NUMBER CLASS 03/22/2018 [id number] Ambulatory [place] 8 [facility] ing:MTRAD Repository 08/18/2017 [id number] Ambulatory [place] 8 [facility] ing:CLSP Repository 08/18/2017 [id number] Ambulatory BMSBuilding:W [place] 9 [facility] Repository 08/17/2017/ [id number] Ambulatory BMSBuilding:B [place] 8 5 [facility] Repository 08/17/2017 [id number] Ambulatory BMSBuilding:B [place] 1 [facility] Repository 08/17/2017 [id number] Ambulatory BMSBuilding:B [place] 1 [facility] Repository 08/17/2017 [id number] Ambulatory BMSBuilding:B [place] 0 [facility] Repository 08/17/2017 [id number] Ambulatory [place] 3 [facility] ing:[facility] Repository 06/29/2017/ [id number] Emergency [place] 8 5 [facility] ing:ED Repository PAYERS PAYERS ENCOUNTER GUARANTOR PAYER SUBSCRIBER SOURCE 03/22/2018 MUKUND [id number] Primary Insurance:MED KRIS E Kaylie [place] [employer] TPAPolicy FIKEDOB: [place], [place] Number: [id number] [facility] [address]Rot: 330) [id number] Repository [phone] (HP) Date:5921-28-06[address] [address], [place] [address]YP: CHECK WEBSITE 03/22/2018 Secondary NOT GIVENUNK [place] Insurance:SELF PAY [facility] Number: Effective Repository Date:2018-03-22 08/18/2017 MUKUND [id number] Primary Insurance:MED Kris E [place] [employer] TPAP[employer] FikeDOB: [place], [place] Number: [id number] [facility] [address]Vki: [id number] Repository [phone] Date:0152-10-85WM [address] [address], [place] [address]DG: CHECK WEBSITE 08/18/2017 Secondary NOT GIVENUNK [place] Insurance:SELF PAY [facility] Number: Effective Repository Date:2017-08-17 08/18/2017 MUKUND [id number] Primary Insurance:MED Kris E [place] [employer] TP[employer] keDOB: [place], [place] Number: [id number] Hospital [address]Opr: [id number] Repository [phone] Date:0386-14-71[address] ([place]) [address], [place] [address]EV: CHECK WEBSITE 08/18/2017 Secondary NOT GIVENUNK [place] Insurance:SELF PAY [facility] Number: Effective Repository Date:2017-08-18 08/17/2017 MUKUND [id number] Primary Insurance:MED Krsi E Kaylie [place] [employer] TP[employer] FikeDOB: [facility], [place] Number: [id number] Hospital [address]Pou: [id number] Repository [phone] Date:6338-48-64NF [address] [address], [place] [address]GW: CHECK WEBSITE 08/17/2017 Secondary NOT GIVENUNK [place] Insurance:SELF PAY [facility] Number: Effective Repository Date:2017-08-17 08/17/2017 UMKUND [id number] Primary Insurance:MED Kris E Kaylie [place] MUTUAL TPAPolicy FikeDOB: [facility], [place] Number: [id number] Hospital [address]Qxl: [id number] Repository [phone] Date:6811-78-19NH [address] [address], [place] [address]TY: CHECK WEBSITE 08/17/2017 Secondary NOT GIVENUNK Kay[place] Insurance:SELF PAY [facility] Number: Effective Repository Date:2017-08-17 08/17/2017 MUKUND [place] [id number] Primary Insurance:MED Kris E Ack[place] MUTUAL TPAPolicy FikeDOB: [facility], [place] Number: [id number] [facility] [address]Pbf: [id number] Repository [phone] Date:1385-87-23GB [address] [address], [place] [address]SR: CHECK WEBSITE 08/17/2017 Secondary NOT GIVENUNK Kaylie Insurance:SELF PAY [facility] Number: Effective Repository Date:2017-08-17 08/17/2017 MUKUND [place] [id number] Primary Insurance:MED Kris E A[place] MUTUAL TPAPolicy FikeDOB: [facility], [place] Number: [id number] Hospital [address]Src: [id number] Repository [phone] Date:8573-87-67BN [address] [address], [place] [address]SU: CHECK WEBSITE 08/17/2017 Secondary NOT GIVENUNK Kay[place] Insurance:SELF PAY [facility] Number: Effective Repository Date:2017-08-17 08/17/2017 MUKUND [place] [id number] Primary Insurance:MED Kris E Kaylie [place] MUTUAL TPAPolicy FikeDOB: [place], [place] Number: [id number] [facility] [address]Jjc: [id number] Repository [phone] Date:0963-67-48MJ [address] () [address], [place] [address]VN: CHECK WEBSITE 08/17/2017 Secondary NOT GIVENUNK [place] Insurance:SELF PAY [facility] Number: Effective Repository Date:2017-07-24 06/29/2017 MUKUND [place] [id number] Primary Insurance:MED Kirs E Ack[place] MUTUAL TPAPolicy FikeDOB: [place], [place] Number: [id number] Hospital [address]Jbk: [id number] Repository [phone] Date:5234-42-75QV [address] [address], [place] [address]IX: CHECK WEBSITE 06/29/2017 Secondary NOT GIVENUNK [place] Insurance:SELF PAY [facility] Number: Effective Repository Date:2017-06-29
== END ==
PROVIDERS: Family Provider Family Medicine; PCP Family Medicine; Referring Provider Family Medicine; Visit Provider Family Medicine
DX: R10.30 Lower abdominal pain, unspecified (principal)
CPT/HCPCS: 74019

== ENCOUNTER → 2020-03-07 10:05 | Outpatient (CLI) | payer OTHER, SELFPAY ==
[2017-08-18 06:41] VITALS: BMI 29.2
[2020-03-07 12:54] LABS: Anion Gap 2 (5-15); BUN 20 mg/dL (7-18); BUN/Creat Ratio 17.4 RATIO (10-20); Calcium,Total 9.3 mg/dL (8.5-10.1); Chloride 106 mmol/L (98-107); Cholesterol 207 mg/dL (200); Creatinine, Serum 1.15 mg/dL (0.70-1.30); EST Glomerular Filtration Rate 68 mL/min (>60); Est Glom Filt Rate - Afr Amer 83 mL/min (>60); Glucose 99 mg/dL (74-106); High Density Lipoprotein 52 mg/dL; PSA,Total - Annual Screen 2.56 ng/mL (0.00-4.00); Potassium 4.4 mmol/L (3.5-5.1); Sodium Level 136 mmol/L (136-145); Triglycerides 109 mg/dL; Very Low Density Lipoprotein 22 mg/dL (5-40)
== END ==
PROVIDERS: PCP Family Medicine; Referring Provider Family Medicine; Visit Provider Family Medicine
DX: I10 Essential (primary) hypertension (principal); Z12.5 Encounter for screening for malignant neoplasm of prostate
CPT/HCPCS: 36415; 80048; 80061; 84153; G0103

== ENCOUNTER → 2020-04-10 | Outpatient (CLI) | payer OTHER, SELFPAY ==
[2017-08-18 06:41] VITALS: BMI 29.2
--- NOTE | 2020-04-10 10:30 | BONBX_PTH ---
PATIENT: MUKUND ULRICH LOC: [facility] U#:[id number] AGE/SX: 64/M ROOM: RE04/10/[address]: Dr. Robles Landaverde MD : 1955 BED: DIS: 04/10/2020 SPEC #: [id number] RECD: 04/10/20 15:06 STATUS: ADALI REIbrahima #: [id number] ANIYA: 04/10/20 10:[address]: Robles Landaverde DEPT: SURGICAL PATHOLOGY RECD BY: Thuy Hill Tissues: Shoulder, NOS Procedures: Surgery Specimen Level IV HEADER OPERATION: Shave biopsy back/shoulder PRE-OP DIAGNOSIS: Left shoulder atypical nevus; rule out BCC TISSUE SUBMITTED: Shoulder biopsy MICROSCOPIC DIAGNOSIS Skin lesion of right shoulder, shave biopsy: Basal cell carcinoma, superficial nodular, multifocal. AM:adrianna 04/12/20 MICROSCOPIC DESCRIPTION Slides are reviewed. GROSS DESCRIPTION Received in fixative is one container labeled with the patient's name and designated left shoulder. The specimen consists of a piece of marshall-white skin measuring 1.2 x 6.6 x 0.1 cm. The specimen is inked and submitted entirely in one cassette. It will be sectioned at the time of embedding. / BLAKE:adrianna 04/11/20 TC:0 CPT: 43369
== END | disposition home or self-care (01) ==
LOC: LABSPEC 15:57
PROVIDERS: PCP Family Medicine; Visit Provider Family Medicine
DX: C44.612 Basal cell carcinoma of skin of right upper limb, including shoulder (principal)
CPT/HCPCS: 88305; 88311

== ENCOUNTER 2021-05-15 10:13 | Outpatient (CLI) | payer OTHER, SELFPAY ==
[2021-05-15 12:41] LABS: Anion Gap 7 (5-15); BUN 17 mg/dL (7-18); BUN/Creat Ratio 16.5 RATIO (10-20); Chloride 103 mmol/L (98-107); Cholesterol 197 mg/dL (200); Creatinine, Serum 1.03 mg/dL (0.70-1.30); EST Glomerular Filtration Rate 77 mL/min (>60); Est Glom Filt Rate - Afr Amer 93 mL/min (>60); Glucose 90 mg/dL (74-106); High Density Lipoprotein 46 mg/dL; PSA,Total - Annual Screen 2.58 ng/mL (0.00-4.00); Potassium 4.7 mmol/L (3.5-5.1); Sodium Level 136 mmol/L (136-145); Triglycerides 124 mg/dL; Very Low Density Lipoprotein 25 mg/dL (5-40)
== END 2021-05-15 23:59 | disposition short-term general hospital (02) ==
LOC: MFPLAB 10:16
PROVIDERS: PCP Family Medicine; Referring Provider Family Medicine; Visit Provider Family Medicine
DX: Z12.5 Encounter for screening for malignant neoplasm of prostate (principal); I10 Essential (primary) hypertension
CPT/HCPCS: 36415; 80048; 80061; 84153; G0103

== ENCOUNTER 2021-06-21 17:43 | Outpatient (CLI) | payer OTHER, SELFPAY | END 2021-06-21 23:59 | disposition home or self-care (01) | PROVIDERS: PCP Family Medicine; Referring Provider Family Medicine; Visit Provider Family Medicine | DX: Z20.822 Contact with and (suspected) exposure to COVID-19 (principal); R94.30 Abnormal result of cardiovascular function study, unspecified | CPT/HCPCS: 87635; U0003; U0005 ==

== ENCOUNTER → 2022-03-03 | Outpatient (CLI) | payer OTHER, SELFPAY ==
[2022-03-03 17:54] LABS: ALB/GLOB Ratio 1.1 RATIO (0.9-2.4); AST(SGOT) 21 U/L (15-37); Alanine Aminotransfer ALT/SGPT 36 U/L (16-61); Albumin, Serum 3.3 g/dL (3.2-5.0); Alkaline Phosphatase 45 U/L (45-117); Anion Gap 4 (5-15); BUN 15 mg/dL (7-18); Calcium,Total 8.5 mg/dL (8.5-10.1); Chloride 107 mmol/L (98-107); EST Glomerular Filtration Rate 80 mL/min (>60); Est Glom Filt Rate - Afr Amer 96 mL/min (>60); Glucose 119 mg/dL (74-106); Potassium 3.9 mmol/L (3.5-5.1); Protein, Total 6.3 g/dL (6.4-8.2); Sodium Level 140 mmol/L (136-145)
[2022-03-03 17:58] LABS: Absolute Lymphocyte Count 2.13 X10^3/uL (0.83-4.51); Basophil# 0.04 X10^3/uL; Basophil% 0.5 % (0-1); Eosinophil# 0.25 X10^3/uL; Hematocrit 39.1 % (40-54); Lymphocyte # 2.13 X10^3/ul (0.83-4.51); Lymphocyte % 25.9 % (19-41); Mean Corp Hgb Conc 33.2 g/dL (32-36); Mean Corpuscular Hgb 31.8 pg (27.0-32.0); Mean Corpuscular Volume 95.6 fL (80-94); Mean Platelet Vol. 9.9 fl (6.2-12.0); Monocyte# 0.82 X10^3/uL; NRBC Flagged by Analyzer 0 % (0-5); Neutrophil # 4.95 X10^3/uL (2.7-7.7); Neutrophil % 60.2 % (47-70); Platelet Count 243 K/mm3 (150-450); RBC Distribution Width CV 12.5 % (11.6-14.6); RBC Distribution Width SD 43.9 fl (35.1-43.9); Red Blood Count 4.09 M/mm3 (4.6-6.2); White Blood Count 8.2 K/mm3 (4.4-11.0)
== END | disposition home or self-care (01) ==
LOC: MFPLAB 15:12
PROVIDERS: PCP Family Medicine; Visit Provider Family Medicine
DX: M79.602 Pain in left arm (principal)
CPT/HCPCS: 36415; 80053; 85025

== ENCOUNTER → 2022-05-19 | Outpatient (CLI) | payer OTHER, SELFPAY ==
[2022-05-19 13:13] LABS: Anion Gap 5 (5-15); BUN 14 mg/dL (7-18); BUN/Creat Ratio 13.3 RATIO (10-20); Calcium,Total 8.8 mg/dL (8.5-10.1); Chloride 104 mmol/L (98-107); Cholesterol 199 mg/dL (200); Creatinine, Serum 1.05 mg/dL (0.70-1.30); EST Glomerular Filtration Rate 75 mL/min (>60); Est Glom Filt Rate - Afr Amer 91 mL/min (>60); Glucose 98 mg/dL (74-106); High Density Lipoprotein 47 mg/dL; PSA,Total - Annual Screen 2.19 ng/mL (0.00-4.00); Potassium 4.3 mmol/L (3.5-5.1); Sodium Level 137 mmol/L (136-145); Triglycerides 155 mg/dL; Very Low Density Lipoprotein 31 mg/dL (5-40)
== END | disposition home or self-care (01) ==
LOC: MFPLAB 10:21
PROVIDERS: PCP Family Medicine; Visit Provider Family Medicine
DX: Z13.1 Encounter for screening for diabetes mellitus (principal); Z13.220 Encounter for screening for lipoid disorders; Z12.5 Encounter for screening for malignant neoplasm of prostate
CPT/HCPCS: 36415; 80048; 80061; 84153; G0103

== ENCOUNTER → 2023-08-27 | Outpatient (CLI) | payer OTHER, SELFPAY ==
[2023-08-27 12:53] LABS: Anion Gap 5 (5-15); BUN 16 mg/dL (7-18); BUN/Creat Ratio 14.7 RATIO (10-20); Calcium,Total 9.3 mg/dL (8.5-10.1); Chloride 105 mmol/L (98-107); Creatinine, Serum 1.09 mg/dL (0.70-1.30); EST Glomerular Filtration Rate 72 mL/min (>60); Est Glom Filt Rate - Afr Amer 87 mL/min (>60); Glucose 96 mg/dL (74-106); PSA,Total - Annual Screen 2.59 ng/mL (0.00-4.00); Potassium 4.3 mmol/L (3.5-5.1); Sodium Level 137 mmol/L (136-145)
== END | disposition home or self-care (01) ==
LOC: MFPLAB 11:11
PROVIDERS: PCP Family Medicine; Visit Provider Family Medicine
DX: Z12.5 Encounter for screening for malignant neoplasm of prostate (principal); I10 Essential (primary) hypertension
CPT/HCPCS: 36415; 80048; 84153; G0103

== ENCOUNTER 2023-10-16 14:31 | Outpatient (CLI) | payer SELFPAY ==
--- NOTE | 2023-10-16 14:47 | CT_ITS ---
STUDY: CT CHEST WITHOUT CONTRAST REASON FOR EXAM: Male, 68 years old. HLD RADIATION DOSAGE (If Supplied By Facility): CTDIvol = ( 12.19 ) mGy, DLP = ( 268.17 ) mGycm TECHNIQUE: Transaxial imaging was performed without the administration of intravenous contrast material. Cardiac over read examination. Individualized dose optimization techniques were used for this CT. COMPARISON: No relevant priors. FINDINGS: CHEST The lungs are normal. There is no demonstrated pleural abnormality. There are calcifications of the coronary arteries. There are small lymph nodes within the mediastinum, which are normal in size and morphology most compatible with reactive lymph hyperplasia. Normal hilar regions. Normal unenhanced pulmonary arteries. There is atherosclerotic calcification of the aortic arch. There are degenerative changes of the thoracic spine. There is no demonstrated abnormality of the visualized upper abdomen. CT/Limited Chest CT Cardiac Only IMPRESSION: Coronary artery calcification. Electronically Signed: Edson Plascencia MD at 9:02 EDT ,
--- NOTE | 2023-10-19 07:19 | CA.SCORE ---
Calcium Scoring Date of Study:: 10/16/23 Indications Indications: Hyperlipidemia Coronary Calcium Scoring: High-resolution Computed Tomographic imaging of the chest was performed on [10/16/2023], with particular attention paid to the coronary arteries. Images from the examination were analyzed for the presence and extent of coronary artery calcification , using coronary calcium quantification software. The patient tolerated the procedure well and there were no complications. The results of the coronary calcification analysis are provided below. Findings Coronary Artery Left Main (LM): 0 Left Anterior Descending (LAD): 70 Left Circumflex (LCX): 0 Right Coronary Artery (RCA): 0 Total Agatston Score: 70 Percentile Rankinth to 50th percentile Calcium Scoring Interpretation: Different methods to categorize the overall amount of coronary plaque. Overall amount CAC SIS Visual of coronary plaque P1 Mild -100 <2 1-2 vessels with mild amount of plaque P2 Moderate 101-300 3-4 1-2 vessels with moderate amount, 3 vessels with mild amount of plaque P3 Severe 301-999 5-7 3 vessels with moderate amount, 1 vessel with severe amount of plaque P4 Extensive >1000 >8 2-3 vessels with severe amount of plaque Calcium Score: Mild: 1-2 vessels w/mild amount of plaque Conclusion: Mild atherosclerotic plaquing noted in the LAD.
== END 2023-10-16 23:59 | disposition home or self-care (01) ==
PROVIDERS: PCP Family Medicine; Referring Provider Family Medicine; Visit Provider Family Medicine
DX: E78.5 Hyperlipidemia, unspecified (principal); I25.10 Atherosclerotic heart disease of native coronary artery without angina pectoris
CPT/HCPCS: 75571; 76380

== ENCOUNTER → 2024-08-30 | Outpatient (CLI) | payer MEDICARE, OTHER, SELFPAY ==
[2024-08-30 16:14] LABS: ALB/GLOB Ratio 1.6 RATIO (0.9-2.4); AST(SGOT) 31 U/L (<=37); Alanine Aminotransfer ALT/SGPT 41 U/L (<=46); Albumin, Serum 4.3 g/dL (3.4-4.8); Alkaline Phosphatase 52 U/L (40-129); Anion Gap 11 (5-15); BUN 17 mg/dL (4-19); BUN/Creat Ratio 16.3 RATIO (10-20); Calcium,Total 9.3 mg/dL (7.6-11.0); Carbon Dioxide 25.2 mmol/L (21.0-32.0); Chloride 100 mmol/L (98-108); Creatinine, Serum 1.04 mg/dL (0.70-1.20); EST Glomerular Filtration Rate 78 (>60); Globulin 2.7 g/dL (2.2-4.2); Glucose 89 mg/dL (70-99); Hepatitis C Antibody Nonreactive (Nonreactive); PSA,Total - Annual Screen 2.99 ng/mL (0.02-4.00); Potassium 4.7 mmol/L (3.3-5.1); Sodium Level 136 mmol/L (133-145); Total Bilirubin 0.51 mg/dL (0.00-1.30); Vitamin D,25 Hydroxy 26.7 ng/mL (30-100)
== END | disposition home or self-care (01) ==
LOC: MFPLAB 11:16
PROVIDERS: PCP Family Medicine; Referring Provider Family Medicine; Visit Provider Family Medicine
DX: Z12.5 Encounter for screening for malignant neoplasm of prostate (principal); M79.10 Myalgia, unspecified site; Z11.59 Encounter for screening for other viral diseases; E78.5 Hyperlipidemia, unspecified
CPT/HCPCS: 36415; 80053; 82306; 84153; 84403; 84443; 86803; G0103

== ENCOUNTER → 2024-09-21 | Outpatient (CLI) | payer MEDICARE, OTHER, SELFPAY ==
--- NOTE | 2024-09-21 08:42 | AAAS_ITS ---
Reason For Study Reason For Study: Screening Aorta Measurements Aorta Doppler Measurements Proximal aorta measures1.83x1.87cm. in cross-sectional axis.Peak systolic flow velocities within the proximal aorta Proximal aorta measures1.98cm. in longitudinal axis. measure 113.3 cm/sec. Mid aorta measures1.68x1.84cm. in cross-sectional axis. Peak systolic flow velocities within the mid aorta measure Mid aorta measures1.68cm. in longitudinal axis. 86.9 cm/sec. Distal aorta measures1.52x1.64cm. in cross-sectional axis. Peak systolic flow velocities within the distal aorta Distal aorta measures1.49cm. in longitudinal axis. measure 80.3 cm/sec. Left Iliac Artery Left iliac artery measures 1.16 cm. in the longitudinal axis. Left iliac artery measures 1.02x1.13 cm. in the cross- sectional axis. Peak systolic velocity in the left iliac artery measures 100.1 cm/sec. Right Iliac Artery Right iliac artery measures 1.03 cm. in the longitudinal axis. Right iliac artery measures 1.13x1.37 cm. in the cross- sectional axis. Peak systolic velocity in the right iliac artery measures 130.8 cm/sec. Procedure Aorta IVC Iliac vasculature or bypass grafts 40434. Exam performed in department. VL/AAA Screening Interpretation Summary Aorta patent, normal caliber. Bilateral iliac arteries patent, normal caliber. Ordering Physician: Robles Landaverde Referring Physician: Robles Landaverde Performed By: Nancy Anaya RVT
== END | disposition home or self-care (01) ==
LOC: CVS 08:42
PROVIDERS: PCP Family Medicine; Referring Provider Family Medicine; Visit Provider Family Medicine
DX: Z13.6 Encounter for screening for cardiovascular disorders (principal)
CPT/HCPCS: 76706